=== PATIENT | female | born 1955 | race Two or more races ===

== ENCOUNTER 2018-04-27 14:03 | Emergency (ER) | payer OTHER ==
--- NOTE | 2018-04-27 14:48 | PDOC ---
History of Present Illness - General Chief Complaint: Wound Stated Complaint: FALL Time Seen by Provider: 04/27/18 14:36 History Source: Patient Exam Limitations: No Limitations - History of Present Illness Severity: reports: moderate Pain Location: reports: lower extremity Past History - Past Medical History Allergies/Adverse Reactions: Allergies Allergy/AdvReac Type Severity Reaction Status Date / Time No Known Allergies Allergy Verified 04/27/18 14:22 Home Medications: Ambulatory Orders Amlodipine Besylate [Norvasc -] 10 mg PO DAILY 04/27/18 Metoprolol Succinate [Toprol Xl] 50 mg PO DAILY 04/27/18 COPD: No Other medical history: arthritis, chronic back issues - Suicide/Smoking/Psychosocial Hx Smoking History: Current every day smoker Information on smoking cessation initiated: No *Physical Exam - Vital Signs Last Vital Signs Temp Pulse Resp BP Pulse Ox 97.8 F 77 20 114/51 L 95 04/27/18 14:28 04/27/18 14:28 04/27/18 14:28 04/27/18 14:28 04/27/18 14:28 Moderate Sedation - Procedure Monitoring Vital Signs: Procedure Monitoring Vital Signs Temperature 97.8 F 04/27/18 14:28 Pulse Rate 77 04/27/18 14:28 Respiratory Rate 20 04/27/18 14:28 Blood Pressure 114/51 L 04/27/18 14:28 O2 Sat by Pulse Oximetry (%) 95 04/27/18 14:28
[2018-04-27 14:49] VITALS: TEMP 97.8; BMI 24.7
--- NOTE | 2018-04-27 16:20 | PDOC ---
Attending Attestation - Resident Resident Name: Rahul Williamson - ED Attending Attestation I have performed the following: I have examined & evaluated the patient, The case was reviewed & discussed with the resident, I agree w/resident's findings & plan, Exceptions are as noted - HPI HPI: 04/27/18 16:25 62y F presensts with laceration to R knee sp fall last night. Patient states that she tripped and fell landing on her right knee on a porcelein step. Patient cleaned it home with irrigation and wipes, urgent care for care today and was sent to the ER for evaluation . The patient denies any numbness, tingling, head injury, neck pain, back pain, any other extremity injury. last tetanus approx 7 years ago R knee exam: stelate laceration on anterior R knee, R patellar tendon function intact wihout pain on knee flexion against resistance. camelia update tetanus laceration approx 17 hrs old, will tack wound together to close by secondary intention will numb, irrigate prophyalxis abx
[2018-04-27] MEDS ORDERED: ALPRAZolam 0.25 MG TABLET PO ONE (16:45)
[2018-04-27] MEDS ORDERED: LIDOCAINE HCL 1%, 10 MG/ML (20ML VIAL) ONE (16:58)
[2018-04-27] MEDS ORDERED: ALPRAZolam 0.25 MG TABLET ONE (17:17)
--- NOTE | 2018-04-27 18:07 | PDOC ---
History of Present Illness - General Chief Complaint: Wound Stated Complaint: FALL Time Seen by Provider: 04/27/18 14:36 History Source: Patient Exam Limitations: No Limitations - History of Present Illness Initial Comments: 62 yo F w a sig pmh of Tripple bypass, GERD, pacemaker, Watermelon stomach presents after she fell down last night on her knee and now has a laceration. She denies any numbness, tingling, or chills. Denies recent fevers or infections. She has full strength in her right leg and foot. It is painful for her to flex or extend her knee. PCP: Juice Rasmussen PSH: Gastrectomy, shoulder replacements, hernia, cholecystectomy Social Hx: Smokes 0.5 PPD, denies drinking or other substance usage. Allergies: Seasonal allergies Past History - Past Medical History Allergies/Adverse Reactions: Allergies Allergy/AdvReac Type Severity Reaction Status Date / Time No Known Allergies Allergy Verified 04/27/18 14:22 Home Medications: Ambulatory Orders Amlodipine Besylate [Norvasc -] 10 mg PO DAILY 04/27/18 Cephalexin [Keflex] 500 mg PO QID #20 capsule 04/27/18 Metoprolol Succinate [Toprol Xl] 50 mg PO DAILY 04/27/18 COPD: No Other medical history: arthritis, chronic back issues - Suicide/Smoking/Psychosocial Hx Smoking History: Current every day smoker Information on smoking cessation initiated: No Review of Systems - Review of Systems Able to Perform ROS?: Yes Comments:: CONSTITUTIONAL: Absent: fever, no chills, no fatigue EYES: Absent: visual changes ENT: Absent: ear pain, no sore throat CARDIOVASCULAR: Absent: chest pain, no palpitations RESPIRATORY: Absent: cough, no SOB GI: Absent: abdominal pain, no nausea, no vomiting, no constipation, no diarrhea GENITOURINARY: Absent: dysuria, no frequency, no hematuria MUSKULOSKELETAL: Absent: back pain, no arthralgia, no myalgia SKIN: Present: rash NEURO: Absent: headache *Physical Exam - Vital Signs Last Vital Signs Temp Pulse Resp BP Pulse Ox 97.8 F 77 20 114/51 L 95 04/27/18 14:28 04/27/18 14:28 04/27/18 14:28 04/27/18 14:28 04/27/18 14:28 - Physical Exam Comments: GENERAL: Well-appearing, well-nourished. Mild distress. HEENT: Normocephalic, atraumatic. PERRL, EOM intact. CARDIOVASCULAR: Normal S1, S2. Regular rate and rhythm. PULMONARY: Clear to auscultation bilaterally. ABDOMEN: Soft, non-distended, non-tender. RIGHT KNEE: There is a 8 CM laceration. The underlying joint space is visible but not penetrated. No neurodeficits. Full sensation. EXTREMITIES: Normal ROM in other 3 extremities. No gross deformities. SKIN: Warm, dry. No rash NEUROLOGICAL: No focal neurological deficits. Moderate Sedation - Procedure Monitoring Vital Signs: Procedure Monitoring Vital Signs Temperature 97.8 F 04/27/18 14:28 Pulse Rate 77 04/27/18 14:28 Respiratory Rate 20 04/27/18 14:28 Blood Pressure 114/51 L 04/27/18 14:28 O2 Sat by Pulse Oximetry (%) 95 04/27/18 14:28 Procedures - Laceration/Wound Repair Right Lower Anterior Knee Wound Length: 5.0 to 7.5 cm Wound Explored: clean, no foreign body present Wound's Depth, Shape: superficial, contused tissue Irrigated w/ Saline: Yes Betadine Prep: Yes Anesthesia: 1% Lidocaine Amount of Anesthetic (ccs): 15 Wound Debrided: minimal Wound Repaired With: Sutures Suture Size/Type: 3:0 Number of Sutures: 3 Layer Closure: No Sterile Dressing Applied: Yes Splint Applied: Yes Type of Splint Applied: Knee immobilizer ED Treatment Course - Medications Given in the ED: ED Medications Discontinued Medications Generic Name Dose Route Start Last Admin Trade Name Kalenq PRN Reason Stop Dose Admin Alprazolam 0.25 mg 04/27/18 16:45 04/27/18 17:21 Xanax - PO 04/27/18 16:46 0.25 mg ONCE ONE Administration Medical Decision Making - Medical Decision Making 62 yo F presents with a Right knee laceration. DDx IBNLT: simple laceration, joint capsule injury Plan: Irrigate wound, anesthetize, suture slightly closed. - Will try to let the wound heal by secondary intention given the fall and laceration occured more than 12 hours prior to arrival. Patient promises she has great follow up with her orthopedist in the next 3 days. *DC/Admit/Observation/Transfer Diagnosis at time of Disposition: Laceration, Knee injury - Discharge Dispostion Disposition: HOME Condition at time of disposition: Stable Decision to Admit order: No - Prescriptions Prescriptions: Cephalexin [Keflex] 500 mg PO QID #20 capsule - Referrals Referrals: [facility] [place] [Provider Group] - Patient Instructions Printed Discharge Instructions: DI for Septic Arthritis, DI for Suture Removal , DI for Wound Infection Additional Instructions: You came into the ER with a knee laceration. We sutured it together so that it can heal and placed you in a knee immobilizer. It is very important for you to see both your primary care doctor and an orthopedist as soon as you can to check on the knee and make sure it is healing well. We placed 3 sutures which you need to have removed in 14 days. Any Healthcare provider can remove them for you. If your knee pain worsens, you get a fever, you start vomiting, or have numnbess tinlging or chills please come back to the ER immediately! We are sending antibiotics to your [facility] pharmacy. Please make sure to take them 4 times a day for the next 5 days. Thank you for coming to the [facility] ER. We hope you feel better soon! Print Language: AMHARIC - Post Discharge Activity
[2018-04-27 18:59] VITALS: BP 110/76; PULSE 69
== END 2018-04-27 18:35 | disposition home or self-care (01) ==
LOC: JER 14:03
PROC: 0JQN0ZZ Repair Right Lower Leg Subcutaneous Tissue and Fascia, Open Approach (ICD-10-PCS; principal; 2018-04-27)
PROC: 2W3QXYZ Immobilization of Right Lower Leg using Other Device (ICD-10-PCS; 2018-04-27)
DX: S81.011A Laceration without foreign body, right knee, initial encounter (principal); W10.8XXA Fall (on) (from) other stairs and steps, initial encounter; Y93.89 Activity, other specified; Y92.89 Other specified places as the place of occurrence of the external cause; Y99.8 Other external cause status; I25.10 Atherosclerotic heart disease of native coronary artery without angina pectoris; Z95.1 Presence of aortocoronary bypass graft; K21.9 Gastro-esophageal reflux disease without esophagitis; Z95.0 Presence of cardiac pacemaker; K31.819 Angiodysplasia of stomach and duodenum without bleeding
CPT/HCPCS: 12002; 29530; 73562-TC-RT-FY; 99281-25